=== PATIENT | male | born 1970 | race Caucasian/White ===

== ENCOUNTER 2018-12-07 09:08 | Emergency (ER) | payer BC, OTHER ==
[~2018-12-07] VITALS: Ht 177.8 cm; Wt 80.7 kg
[2018-12-07] MEDS ORDERED: ALTACE10 MG PO (09:23)
[2018-12-07] MEDS ORDERED: HYDROCHLOROTHIA25 M2 PO (09:23)
[2018-12-07] MEDS ORDERED: ZOCOR40 MG PO (09:24)
[2018-12-07] MEDS ORDERED: PROCARDIA10 MG PO (09:24)
[2018-12-07 10:00] LABS: ABSOLUTE NEUTROPHILS 5.1 thou/uL (1.4-8.2); BASOPHILS 0.7 % (0.0-2.0); EOSINOPHILS 0.6 % (0.0-3.0); HEMOGLOBIN 16.2 gm/dL (14.0-18.0); LYMPHOCYTES 32.3 % (24.0-44.0); MCH 30.5 pg (26.0-34.0); MCHC 33.8 g/dL (28.0-37.0); MCV 90.1 fL (80.0-100.0); PLATELET COUNT 266 thou/uL (150-400); POLYS 60.4 % (36.0-66.0); RBC 5.33 mil/uL (4.50-6.00); RDW 13.6 % (10.5-14.5); WBC 8.4 thou/uL (4.0-11.0)
[2018-12-07 10:04] LABS: ANION GAP 11 mmol/L (7-16); BUN 21 mg/dL (7-18); CHLORIDE 102 mmol/L (98-107); CO2 27 mmol/L (21-32); GLUCOSE 108 mg/dL (74-106); POTASSIUM 4.2 mmol/L (3.5-5.1); SODIUM 140 mmol/L (136-145)
[2018-12-07 10:14] LABS: LIPASE 135 U/L (73-393); SGOT 15 U/L (15-37); SGPT 28 U/L (30-65); TOTAL BILIRUBIN 0.5 mg/dL (<0.1-1.0); TROPONIN-I <0.06 ng/mL (<0.06)
[2018-12-07 13:27] LABS: URINE BILIRUBIN NEGATIVE (Negative); URINE BLOOD NEGATIVE (Negative); URINE CLARITY CLEAR; URINE COLOR YELLOW; URINE GLUCOSE-RANDOM* NEGATIVE (Negative); URINE KETONES NEGATIVE (Negative); URINE LEUKOCYTES-REFLEX NEGATIVE (Negative); URINE NITRITE-REFLEX NEGATIVE (Negative); URINE PROTEIN (DIPSTICK) NEGATIVE (Negative); URINE SPECIFIC GRAVITY <= 1.005 (1.005-1.035); URINE UROBILINOGEN 0.2 E.U./dl (0.2-1.0)
[2018-12-07 14:16] VITALS: BP 142/80
--- NOTE | 2018-12-10 17:59 | EKG ---
[place] [address] [facility] [place] [address] ELECTROCARDIOGRAM REPORT Name: JERRELL BALL Room #: DEP JUAN CARLOS Peng#: [id number] ������������������ Admission: 12/07/18 ������������������ Attend Phys: Discharge: 12/07/18 ������������������ Date of : 66 Report #: [id number] ����������������������������������������������������������������� [id number] THIS REPORT FOR: //name// [facility] ED Test Date: 2018-12-07 Test Time: 10:43:27 Pat Name: JERRELL BALL Department: Room: Gender: M [employer]: : 1970 Requested By: Randall Muniz Order Number: [id number] MD: Gómez Rdoriguez Measurements Intervals [place] Rate: 66 P: 59 MO: 158 QRS: 65 QRSD: 99 T: 32 QT: 414 QTc: 434 Interpretive Statements Sinus rhythm No significant abnormality No previous ECG available for comparison Electronically Signed On 12-10-2018 17:58:56 CDT by Gómez Rodriguez [email or web address] ��������������������������������������������� <ELECTRONICALLY SIGNED> ���������������������������������������� By: Gómez Rodriguez MD, [facility] ��������������������������������������������� 12/10/18 1758 1043 1043 Gómez Rodriguez MD, FACC /EPI
== END 2018-12-07 14:17 | disposition home or self-care (01) ==
LOC: ER 09:08
PROVIDERS: Emergency Medicine
DX: R10.31 Right lower quadrant pain (principal); R10.32 Left lower quadrant pain; Z91.040 Latex allergy status